=== PATIENT | female | born 1980 | race Caucasian/White ===

== ENCOUNTER 2024-03-02 09:39 | Emergency (ER) | payer BC, SELFPAY ==
[2024-03-02 09:52] VITALS: BP 135/70; PULSE 73; RESP 16; TEMP 36.9; O2SAT 100
--- NOTE | 2024-03-02 10:07 | ED.GENADULT ---
HPI - General Adult General Chief complaint: Wound/Laceration Stated complaint: bleeding from belly button Time Seen by Provider: 03/02/24 10:04 Source: patient, RN notes reviewed and old records reviewed Mode of arrival: ambulatory Limitations: no limitations History of Present Illness HPI narrative: 43 year old female who presents to [facility] care with complaints of bleeding from naval area noted this morning. Patient reports no known injury, no abrasion or any irritation to the umbilical area. Patient has some dried blood noted in her naval area with no active bleeding at this time. Patient reports that she has not noted any pimple or any skin lesion to naval area. Patient reports minimal tenderness to tissue around naval area with no swelling present. MD complaint: bleeding from umbilical area this morning none at present time Onset (ago): hour(s) (noted this morning) Severity scale (1-10): 1 Treatments prior to arrival: none Related Data Allergies Allergy/AdvReac Type Severity Reaction Status Date / Time No Known Allergies Allergy Verified 03/02/24 09:51 Review of Systems Review of Systems: CONSTITUTIONAL: Denies fever, chills, or sweats. EYES: Denies visual changes, redness, or discharge. ENT: Denies rhinorrhea, congestion, sore throat, or otalgia. CARDIOVASCULAR: Denies chest pain, palpitations, or edema. RESPIRATORY: Denies cough or dyspnea. GASTROINTESTINAL: Denies abdominal pain, nausea, vomiting, or diarrhea. GENITOURINARY: Denies dysuria or hematuria. SKIN: Denies rash or itching.positive for bleeding from naval noted this morning, no present bleeding MUSCULOSKELETAL: Denies back pain, joint pain, or myalgia. NEUROLOGIC: Denies headache, numbness, or weakness. PSYCHIATRIC: Denies anxiety or depression. All systems reviewed & are unremarkable except as noted in HPI and below PMFSH Past Medical History Medical History (Updated 03/04/24 @ 06:58 by Winter Kwong NP) No pertinent past medical history Surgical History Surgical History (Updated 03/04/24 @ 06:58 by Winter Kwong NP) No history of previous surgery Social History Social History (Updated 03/04/24 @ 06:58 by Winter Kwong NP) Smoking status: Never smoker Alcohol intake: unknown Substance use type: does not use Gender identity (if verbalized by the patient): Female Comments At time of signature, agree with nursing past medical, surgical, social and family history. There is no relevant family history pertinent to the presenting complaint Exam Narrative: GENERAL: Well-appearing, well-nourished, and in no acute distress. HEAD: Normocephalic, atraumatic. EYES: PERRLA and EOMI. ENT: Nares clear, no rhinorrhea or epistaxis. Mucous membranes moist. NECK: Supple.no lymphadenopathy CHEST: Clear to auscultation. No respiratory distress.SAO2 100% on room air HEART: Regular rate and rhythm. No murmur heard. Normal peripheral pulses. ABDOMEN: Soft, nontender, nondistended, normal active bowel sounds. EXTREMITIES: Normal range of motion. No edema. SKIN: Warm, dry, no rash.some dried blood noted in naval area no lesions or irritation noted, mild tenderness no swelling or surrounding bulging tissue NEURO: No focal deficits. Alert and oriented x3. Course Course Emergency Course: Patient is aware of diagnosis, understands and agrees to treatment plan.? Anticipatory guidance given.? Patient agrees to follow-up as directed and is aware of reasons to seek care at the emergency department. Portions of this record may have been created with voice recognition software Level of Care: Express Care Visit Vital Signs Vital signs: Vital Signs Temperature 36.9 C 03/02/24 09:52 Pulse Rate 73 03/02/24 09:52 Respiratory Rate 16 03/02/24 09:52 Blood Pressure 135/70 03/02/24 09:52 Pulse Oximetry 100 03/02/24 09:52 Oxygen Delivery Room Air 03/02/24 09:52 Temperature 36.9 C 03/02/24 09:52 Pulse Rate 73
== END 2024-03-02 10:22 | disposition home or self-care (01) ==
PROVIDERS: Emergency Provider Registered Nurse
DX: R19.8 Other specified symptoms and signs involving the digestive system and abdomen (principal)
CPT/HCPCS: 99202; G0463